=== PATIENT | female | born 1950 | race Hispanic/Latino ===

== ENCOUNTER → 2019-09-05 | Day surgery (SDC) | payer MEDICARE ==
[2019-09-03 10:23] LABS: BASOPHILS % 0.6 % (0.0-1.0); EOSINOPHILS # (AUTO) 0.2 (0.0-0.4); EOSINOPHILS % 2.8 % (0.0-6.0); HEMATOCRIT 42.7 % (34.2-44.1); HEMOGLOBIN 14.1 g/dL (12.0-16.0); LYMPHOCYTES % 37.9 % (18.0-39.1); MEAN CORPUSCULAR HEMOGLOBIN 30.9 pg (28-32); MEAN CORPUSCULAR VOLUME 93.6 fL (81-99); MONOCYTES # (AUTO) 0.6 (0.2-0.8); MONOCYTES % 11.6 % (4.4-11.3); NEUTROPHILS # (AUTO) 2.5 (2.1-6.9); NEUTROPHILS % 46.5 % (38.7-80.0); PLATELET COUNT 219 x10e3/uL (140-360); RED BLOOD COUNT 4.56 x10e6/uL (3.6-5.1); RED CELL DISTRIBUTION WIDTH 14.1 % (11.7-14.4)
[~2019-09-05] MED LIST: CALCIUM + VITA1 EACH PO; FOLIC ACID PO; HUMIRA40 MG/0.1 SQ; HYDROXYCHLOROQ200 MG PO; KETAMINE HCL INJ 50 MG/ML 10 ML VIAL ONE; METHOTREXATE2.5 MG PO; MIDAZOLAM HCL 2 MG/2 ML VIAL ONE; PREDNISONE5 MG PO; PROPOFOL IV EMULSION 10 MG/ML 50 ML VIAL ONE
--- OUTSIDE RECORDS SUMMARY | 2019-09-05 07:13 | XMS REPORT ---
Author Author [facility] Address Unknown Phone Unavailable Care Team Providers Care Manager Delivery Name Role Phone Unavailable Unavailable Payers Payer Name Policy Type Policy Number Effective Date Expiration Date Problems This patient has no known problems. Allergies, Adverse Reactions, Alerts Allergy Name Allergy Type Status Severity Reaction(s) Onset Date Inactive Date Treating Clinician Comments vancomycin DA Active SV 2019-01-01 00:00:00 UNKNOWN ANTIBIOTIC DA Active U 2015-10-31 00:00:00 Medications This patient has no known medications. Encounters Start Date/Time End Date/Time Encounter Type Admission Type Attending Clinicians [facility] Facility Care Department Encounter ID 2018-07-12 00:00:00 Inpatient [facility] [id number] 2017-06-27 09:44:31 Inpatient [facility] [id number] 2017-06-24 01:22:20 Inpatient [facility] [id number] 2017-05-10 13:01:26 Inpatient [facility] [id number] 2019-11-12 00:00:00 2019-11-12 00:00:00 Outpatient [facility] [id number] 2019-07-25 00:00:00 2019-07-25 00:00:00 Outpatient [facility] [id number] 2019-07-11 00:00:00 2019-07-11 00:00:00 Outpatient [facility] [id number] 2019-07-09 00:00:00 2019-07-09 00:00:00 Outpatient [facility] [id number] 2019-06-24 15:04:15 2019-06-24 15:04:15 Outpatient [facility] [id number] 2019-06-24 14:57:46 2019-06-24 14:57:46 Outpatient [facility] [id number] 2019-06-13 23:18:13 2019-06-13 23:18:13 Emergency [facility] [id number] 2019-06-13 22:43:11 2019-06-13 22:43:11 Emergency [facility] [id number] 2019-06-07 09:40:45 2019-06-07 09:40:45 Outpatient [facility] [id number] 2019-05-02 00:00:00 2019-05-02 00:00:00 Outpatient [facility] [id number] 2019-04-25 15:30:12 2019-04-25 15:30:12 Outpatient [facility] [id number] 2019-04-25 14:25:01 2019-04-25 14:25:01 Outpatient [facility] [id number] 2019-04-09 14:43:24 2019-04-09 14:43:24 Outpatient [facility] [id number] 2019-03-30 03:11:05 2019-03-30 03:11:05 Emergency [facility] [id number] 2019-03-29 20:54:30 2019-03-29 20:54:30 Emergency [facility] [id number] 2019-03-29 19:36:30 2019-03-29 19:36:30 Emergency [facility] [id number] 2019-03-29 18:52:30 2019-03-29 18:52:30 Inpatient [facility] [id number] 2019-03-07 09:48:16 2019-03-07 09:48:16 Outpatient [facility] [id number] 2019-03-07 07:41:09 2019-03-07 07:41:09 Outpatient [facility] [id number] 2019-02-22 10:00:14 2019-02-22 10:00:14 Outpatient [facility] [id number] 2019-01-30 08:38:47 2019-01-30 08:38:47 Outpatient [facility] [id number] 2019-01-18 10:33:32 2019-01-18 10:33:32 Outpatient [facility] [id number] 2018-11-26 13:08:17 2018-11-26 13:08:17 Outpatient [facility] [id number] 2018-11-20 14:19:56 2018-11-20 14:19:56 Outpatient [facility] [id number] 2018-11-12 16:33:36 2018-11-12 16:33:36 Outpatient [facility] [id number] 2018-11-08 08:12:27 2018-11-08 08:12:27 Outpatient [facility] [id number] 2018-11-08 07:15:10 2018-11-08 07:15:10 Outpatient [facility] [id number] 2018-11-05 15:04:10 2018-11-05 15:04:10 Outpatient [facility] [id number] 2018-11-05 13:58:08 2018-11-05 13:58:08 Outpatient [facility] [id number] 2018-11-01 10:22:19 2018-11-01 10:22:19 Outpatient [facility] [id number] 2018-11-01 00:00:00 2018-11-01 00:00:00 Outpatient [facility] [id number] 2018-10-26 00:00:00 2018-10-26 00:00:00 Outpatient [facility] [id number] 2018-10-18 04:35:43 2018-10-18 04:35:43 Emergency [facility] [id number] 2018-10-18 03:12:31 2018-10-18 03:12:31 Emergency [facility] [id number] 2018-10-18 01:28:30 2018-10-18 01:28:30 Emergency [facility] [id number] 2018-10-18 00:00:00 2018-10-18 00:00:00 Outpatient [facility] [id number] 2018-10-18 00:00:00 2018-10-18 00:00:00 Outpatient [facility] [id number] 2018-10-17 10:43:52 2018-10-17 10:43:52 Outpatient [facility] [id number] 2018-07-31 08:16:58 2018-07-31 08:16:58 Outpatient [facility] [id number] 2018-07-20 07:47:44 2018-07-20 07:47:44 Outpatient [facility] [id number] 2018-07-05 10:32:30 2018-07-05 10:32:30 Outpatient [facility] [id number] 2018-07-05 10:31:37 2018-07-05 10:31:37 Outpatient [facility] [id number] 2018-07-05 07:29:05 2018-07-05 07:29:05 Outpatient [facility] [id number] 2018-06-18 00:00:00 2018-06-18 00:00:00 Outpatient [facility] [id number] 2018-06-07 10:14:51 2018-06-07 10:14:51 Outpatient [facility] [id number] 2018-05-23 00:00:00 2018-05-23 00:00:00 Outpatient [facility] [id number] 2018-05-16 12:35:21 2018-05-16 12:35:21 Outpatient [facility] [id number] 2018-04-18 07:52:18 2018-04-18 07:52:18 Outpatient [facility] [id number] 2018-04-16 07:57:33 2018-04-16 07:57:33 Outpatient [facility] [id number] 2018-04-03 00:00:28 2018-04-03 00:00:28 Emergency [facility] [id number] 2018-04-03 00:00:00 2018-04-03 00:00:00 Outpatient [facility] [id number] 2018-04-02 23:19:04 2018-04-02 23:19:04 Emergency [facility] [id number] 2018-04-02 23:14:33 2018-04-02 23:14:33 Emergency [facility] [id number] 2018-03-29 13:30:55 2018-03-29 13:30:55 Outpatient [facility] [id number] 2018-03-22 09:29:04 2018-03-22 09:29:04 Emergency [facility] [id number] 2018-03-17 14:31:40 2018-03-17 14:31:40 Emergency [facility] [id number] 2018-03-17 12:59:27 2018-03-17 12:59:27 Emergency [facility] [id number] 2018-03-17 12:07:06 2018-03-17 12:07:06 Emergency [facility] [id number] 2018-03-08 09:18:07 2018-03-08 09:18:07 Outpatient [facility] [id number] 2018-03-08 07:15:52 2018-03-08 07:15:52 Outpatient [facility] [id number] 2018-03-07 08:22:24 2018-03-07 08:22:24 Outpatient [facility] [id number] 2018-01-30 08:53:20 2018-01-30 08:53:20 Outpatient [facility] [id number] 2018-01-30 08:19:35 2018-01-30 08:19:35 Outpatient [facility] [id number] 2018-01-04 08:31:20 2018-01-04 08:31:20 Outpatient [facility] [id number] 2018-01-02 07:53:12 2018-01-02 07:53:12 Outpatient [facility] [id number] 2017-12-15 07:57:05 2017-12-15 07:57:05 Outpatient [facility] [id number] 2017-12-12 07:43:53 2017-12-12 07:43:53 Outpatient [facility] [id number] 2017-11-28 08:05:45 2017-11-28 08:05:45 Outpatient [facility] [id number] 2017-11-02 10:39:20 2017-11-02 10:39:20 Outpatient [facility] [id number] 2017-11-02 08:04:28 2017-11-02 08:04:28 Outpatient [facility] [id number] 2017-10-31 00:00:00 2017-10-31 00:00:00 Outpatient [facility] [id number] 2017-10-30 08:55:21 2017-10-30 08:55:21 Outpatient [facility] [id number] 2017-10-26 08:58:13 2017-10-26 08:58:13 Outpatient [facility] [id number] 2017-10-20 11:31:00 2017-10-20 11:31:00 Outpatient [facility] [id number] 2017-10-17 00:00:00 2017-10-17 00:00:00 Outpatient [facility] [id number] 2017-10-17 00:00:00 2017-10-17 00:00:00 Outpatient [facility] [id number] 2017-10-10 00:00:00 2017-10-10 00:00:00 Outpatient [facility] [id number] 2017-09-19 08:29:45 2017-09-19 08:29:45 Outpatient [facility] [id number] 2017-09-11 10:55:38 2017-09-11 10:55:38 Outpatient [facility] [id number] 2017-09-11 10:37:52 2017-09-11 10:37:52 Outpatient [facility] [id number] 2017-09-04 08:33:35 2017-09-04 08:33:35 Outpatient [facility] [id number] 2017-09-01 08:13:02 2017-09-01 08:13:02 Outpatient [facility] [id number] 2017-08-29 09:48:34 2017-08-29 09:48:34 Outpatient [facility] [id number] 2017-08-22 11:27:15 2017-08-22 11:27:15 Outpatient [facility] [id number] 2017-08-22 10:04:10 2017-08-22 10:04:10 Outpatient [facility] [id number] 2017-08-15 10:12:27 2017-08-15 10:12:27 Outpatient [facility] [id number] 2017-08-03 10:22:41 2017-08-03 10:22:41 Outpatient [facility] [id number] 2017-07-27 07:26:18 2017-07-27 07:26:18 Outpatient [facility] [id number] 2017-07-27 00:00:00 2017-07-27 00:00:00 Outpatient [facility] [id number] 2017-07-25 10:09:42 2017-07-25 10:09:42 Outpatient [facility] [id number] 2017-07-18 10:10:20 2017-07-18 10:10:20 Outpatient [facility] [id number] 2017-07-13 08:31:01 2017-07-13 08:31:01 Outpatient [facility] [id number] 2017-07-13 00:00:00 2017-07-13 00:00:00 Outpatient [facility] [id number] 2017-07-07 08:36:53 2017-07-07 08:36:53 Outpatient [facility] [id number] 2017-07-06 08:36:49 2017-07-06 08:36:49 Outpatient [facility] [id number] 2017-07-06 08:32:51 2017-07-06 08:32:51 Outpatient [facility] [id number] 2017-07-05 13:54:24 2017-07-05 13:54:24 Outpatient [facility] [id number] 2017-07-04 14:28:57 2017-07-04 14:28:57 Outpatient [facility] [id number] 2017-06-26 00:00:00 2017-06-26 00:00:00 Outpatient [facility] [id number] 2017-06-24 01:54:56 2017-06-24 00:00:00 Inpatient [facility] [id number] 2017-06-23 21:24:48 2017-06-23 21:24:48 Emergency [facility] [id number] 2017-06-23 19:38:03 2017-06-23 19:38:03 Inpatient [facility] [id number] 2017-06-23 14:52:16 2017-06-23 14:52:16 Outpatient [facility] [id number] 2017-06-23 13:26:26 2017-06-23 13:26:26 Outpatient [facility] [id number] 2017-06-20 10:10:35 2017-06-20 10:10:35 Outpatient [facility] [id number] 2017-06-15 08:04:30 2017-06-15 08:04:30 Outpatient [facility] [id number] 2017-06-15 00:00:00 2017-06-15 00:00:00 Outpatient [facility] [id number] 2017-06-14 08:03:16 2017-06-14 08:03:16 Outpatient [facility] [id number] 2017-05-22 00:00:00 2017-05-22 00:00:00 Outpatient [facility] [id number] 2017-05-09 18:07:37 2017-05-09 18:07:37 Outpatient [facility] [id number] 2017-05-09 07:23:36 2017-05-09 07:23:36 Inpatient [facility] [id number] 2017-05-08 11:59:42 2017-05-08 11:59:42 Outpatient [facility] [id number] 2017-05-08 10:10:41 2017-05-08 10:10:41 Outpatient [facility] [id number] 2017-05-04 19:56:10 2017-05-04 19:56:10 Emergency [facility] [id number] 2017-05-04 16:32:08 2017-05-04 16:32:08 Emergency [facility] [id number] 2017-05-04 12:00:50 2017-05-04 12:00:50 Outpatient [facility] [id number] 2017-04-11 00:00:00 2017-04-11 00:00:00 Outpatient [facility] [id number] 2017-03-23 10:27:04 2017-03-23 10:27:04 Outpatient [facility] [id number] 2017-03-13 13:03:33 2017-03-13 13:03:33 Outpatient [facility] [id number] 2017-03-13 12:36:46 2017-03-13 12:36:46 Outpatient [facility] [id number] Results Test Description Test Time Test Comments Text Results Atomic Results Result Comments - CT CHEST W/CONTRAST 2019-08-15 13:57:00 Name: CORIE ANDRADE [facility] : 1950 Age/S: 68 / F [address] [facility] Unit #: [id number] Loc: [place] [address] Phys: Chris Story MD Acct: [id number] Dis Date: Status: REG CLI PHONE #: [phone] Exam Date: 08/15/2019 1300 FAX #: [phone] Reason: PULMANY NODULE EXAMS: CPT CODE: [id number] CT CHEST W/CONTRAST 06914 HISTORY: Pulmonary nodule. COMPARISON: None available. Location: [facility]. CT chest with contrast: 100 mL of Isovue-370. Automated exposure control. Unremarkable aorta. Suboptimally opacified pulmonary artery appear within normal limits. The distal branches are nondiagnostic. Well-opacified SVC and the neck vasculature heterogeneous thyroid glands with low-attenuation lesion in the right interpolar region measuring 5 mm esophageal wall is not thickened. No pathologic adenopathy. Cardiac silhouette is normal without pericardial effusion. Visualized Upper abdomen is within normal limits with coarse 1 cm right interpolar calyceal stone. Hepatomegaly as well. Subcutaneous tissues and the musculature are within normal limits. No lytic or blastic lesions are noted within the bony skeleton. DJD. 9 mm noncalcified right medial lower lobe lung nodule. 4 mm noncalcified subpleural left upper lobe anterolateral lung nodule. 4 mm right upper lobe posterior inferior lateral subpleural lung nodule as well. Dependent changes. Mild basal scarring. No bronchiectasis, honeycombing or fibrosis or endobronchial lesions. Minimal bullous change in the apical segment of the left lower lobe and in the right upper lobe. No acute infiltrates, effusion or congestion. IMPRESSION: 9 mm noncalcified right lower lobe superior segment subpleural lung nodule. Right upper lobe bilateral 4 mm lung nodules as well. Close follow-up. Correlate with PET scan as clinically indicated. No acute infiltrates, effusion or congestion. No pathologic adenopathy. at 1357 Reported and signed by: Ozzie Mallory M.D. PAGE 1 Signed Report (CONTINUED) Name: CORIE ANDRADE [facility] : 1950 Age/S: 68 / F [address] [facility] Unit #: [id number] Loc: [facility] [place] [address] Phys: Chris Story MD Acct: [id number] Dis Date: Status: REG CLI PHONE #: [phone] Exam Date: 08/15/2019 1300 FAX #: [phone] Reason: PULMANY NODULE EXAMS: CPT CODE: [id number] CT CHEST W/CONTRAST 50807 <Continued> CC: Chris Story M.D.; Cole Parish MD; Junior Jeff MD Technologist:Marvin Banks RT(R),(MR),(CT); CTDI: DLP: Trnscb Date/Time: 08/15/2019 (5200) t.[email or web address] Orig Print D/T: S: 08/15/2019 (0560) PAGE 2 Signed Report CREATININE W ESTIMATED GFR 2019-08-15 12:04:00 BEDSIDE CREATININE (test code=CREATBED) mg/dL 0.7-1.3 GLOMERULAR FILTRATION RATE POC (test code=GFRBED) 91 >60 CREATININE W ESTIMATED [id number] 12:04:00* Test Item Value Reference Range Comments BEDSIDE CREATININE (test code=CREATBED) 0.65 mg/dL 0.7-1.3 GLOMERULAR FILTRATION RATE POC (test code=GFRBED) > 60 >60 Previously reported result: 91 Edited by: RADHA on 08/15/19:03205310/15/18 1204: GFRBED previously reported as: 91 H KIDNEY STONE [id number] 11:33:00* Test Item Value Reference Range Comments KIDNEY STONE ANALYSIS (test code=STONEK) mm () Specimen received as fragments. SOURCE OF STONE (test code=STONESRC) KIDNEY STONE ANALYSIS COMMENT (test code=STONECOM) NO NIDUS VISUALIZED NIDUS Color: Panda Size : Specimen received as fragments. Composition: Percentage (Represents the % composition) Ca oxalate dihydrate 10 % Ca oxalate monohydr. 45 % Calcium phosphate 20 % Magnesium alex[place] phos 25 % Test performed at: [facility] [place] [address] STONE ANALYSIS (test code=STONE) () Photograph will follow under separate cover. WEIGHT OF STONE (test code=STONEWT) 16.0 mg () Test performed at: [employer] [address] [address] KIDNEY STONE [id number] 08:19:00* Test Item Value Reference Range Comments KIDNEY STONE ANALYSIS (test code=STONEK) mm () Specimen received as fragments. SOURCE OF STONE (test code=STONESRC) STONE ANALYSIS COMMENT (test code=STONECOM) NIDUS STONE ANALYSIS (test code=STONE) () Photograph will follow under separate cover. WEIGHT OF STONE (test code=STONEWT) 16.0 mg () Test performed at: [employer] [facility] [place] [address] [id number] 17:06:00 RUN DATE: 01/07/19 [place] RUN TIME: 1706 Specimen Inqui ry RUN USER: INTERFACE PATIENT: CORIE ANDRADE ACCT #: [id number] LOC: MARY U #: [id number] AGE/SX: 68/F [facility] DR: Mae Coronado MD : [birth year] BED: A DIS: 01/04/19 STATUS: DIS IN TLOC: SPEC #: [id number] RECD: 01/04/19 STATUS: MASON RE #: [phone] ELADIA: 01/04/19 [facility] [address]: Yony Gallagher ENTERED: 01/04/19 SP TYPE: CALCULI OTHR DR: Yony Sapp ORDERED: GROSS PROCEDURES: GROSS (01/07/19141) TISSUES: LEFT URETERAL ORIFICE - STONE CLINICAL HISTORY COLLECTION D ATE: 01/04/19 LEFT URETERAL STONES FINAL DIAGNOSIS Left ureteral stone, removal: CALCULUS MATERIAL (GROSS IDENTIFICATION) SUBMITTED FOR CHEMICAL ANALYSIS RRB/christiano D 43213 MACROSCOPIC The specimen is submitted in a small amount of saline fluid in a container l abeled with the patient's name and "left ureteral stone". The specimen consis ts of a fragment of light panda calculous material measuring 0.3 x 0.2 x 0.15 c m. The specimen is submitted for chemical analysis. GROSS PERFORMED AT [facility] [address] [place], [place] [address] [place] [address] (p)[phone] Signed SIGNATURE ON Nabil Berger MD 01/07/19 1706 END OF REPORT [id number] 16:04:00* Test Item Value Reference Range Comments GLUBED (test code=GLUBED) 168 mg/dL 74-106 Performed by certified unit reactor operator at [facility] [id number] 11:35:00* Test Item Value Reference Range Comments GLUBED (test code=GLUBED) 258 mg/dL 74-106 Performed by certified unit reactor operator at [facility] [id number] 09:16:00* Test Item Value Reference Range Comments GLUBED (test code=GLUBED) 156 mg/dL 74-106 Performed by certified unit reactor operator at [facility] - XR CYSTOURETHRO [id number] 09:03:00 FAX: Mae Coronado MD [place]: St: ADM FAX: Yony Spain [phone] Name: CORIE ANDRADE [facility] : 1950 Age/S: 68/F Denise Pham Unit #: [id number] Loc: V.5016 [place] [address] Phys: Yony Gallagher Acct: [id number] Dis Date: Status: ADM IN PHONE #: [phone] Exam Date: 01/04/2019 0800 FAX #: [phone] Reason: SURGERY EXAMS: CPT CODE: [id number] XR CYSTOURETHRO RETRO 59553 HISTORY: Ureteral stone. COMPARISON: CT scan from January 01, 2019. 21 fluoroscopic spot images from the OR: Opacification of the left collecting system and stent placement noted. at 0903 Reported and signed by: Ozzie Mallory M.D. CC: Mae Coronado MD; Yony Gallagher M.D. Technologist: MARIXA CHAUDHRY JR Trnscrd Date/Time/By: 01/04/2019 (902) : By: [email or web address] Orig Print D/T: S: 01/04/2019 (905) PAGE 1 Signed Report GLUBED 2019-01-04 06:34:00* Test Item Value Reference Range Comments GLUBED (test code=GLUBED) 128 mg/dL 74-106 Performed by certified unit reactor operator at [facility] [id number] 06:34:00* Test Item Value Reference Range Comments GLUBED (test code=GLUBED) 133 mg/dL 74-106 Performed by certified unit reactor operator at [facility] [id number] 20:58:00* Test Item Value Reference Range Comments GLUBED (test code=GLUBED) 159 mg/dL 74-106 Performed by certified unit reactor operator at [facility] [id number] 12:38:00* Test Item Value Reference Range Comments GLUBED (test code=GLUBED) 168 mg/dL 74-106 Performed by certified unit reactor operator at [facility] [id number] 09:06:00* Test Item Value Reference Range Comments GLUBED (test code=GLUBED) 155 mg/dL 74-106 Performed by certified unit reactor operator at [facility] BASIC METABOLIC [id number] 07:54:00* Test Item Value Reference Range Comments SODIUM (test code=NA) 136 mmol/L 136-145 POTASSIUM (test code=K) 3.4 mmol/L 3.5-5.1 CHLORIDE (test code=CL) 105.0 mmol/L 98-107 CARBON DIOXIDE (test code=CO2) 24.0 mmol/L 21-32 ANION GAP (test code=GAP) 10.4 10-20 GLUCOSE (test code=GLU) 139 mg/dL 74-106 BLOOD UREA NITROGEN (test code=BUN) 9 mg/dL 7-18 GLOMERULAR FILTRATION RATE (test code=GFR) > 60 mL/min >=60 Estimated GFR by using Modified MDRD formula.Chronic kidney disease is defined as either kidney damageor GFR <60 mL/min/1.73 m2 for >3 months. CREATININE (test code=CREAT) 0.60 mg/dL 0.55-1.02 Note change in reference range due to change in reagent. BUN/CREATININE RATIO (test code=BUN/CREA) 15.0 10-20 CALCIUM (test code=CA) 8.3 mg/dL 8.5-10.1 LIPID PROFILE (CORONARY RISK)2019-01-03 07:54:00* Test Item Value Reference Range Comments TRIGLYCERIDES (test code=TRIG) 119 mg/dL 20-150 CHOLESTEROL (test code=CHOL) 133 mg/dL 0-200 CHOLESTEROL/HDL RATIO (test code=CHOLHDL) 4.0 RATIO 0-4.9 RISK ASSOCIATED WITH CHOL/HDL RATIOS: Risk Male Female1/2 AVERAGE 3.43 3.27AVERAGE 4.97 4.442X AVERAGE 9.55 7.053X AVERAGE 23.39 11.04 REFERENCE VALUE IS RELATED TO RISK LEVELS ASRECOMMENDED BY THE LG. HEART, LUNG, AND BLOOD INST. HDL CHOLESTEROL (test code=HDL) 30 mg/dL 40-60 LIPOPROTEIN LDL (test code=LDL) 79 mg/dL 100-129 Reference Interval: mg/dL mmol/L Optimal <100 <2.6Near/above optimal 100-129 2.6- 3.3Borderline High 130-159 3.4-4.1High 160-189 4.1-4.9Very High >=190 >=4.9=========This LDL result is a direct measurement.========= [id number] 07:54:00* Test Item Value Reference Range Comments MAGNESIUM (test code=MAG) 1.8 mg/dL 1.8-2.4 CBC W/AUTO [id number] 07:36:00* Test Item Value Reference Range Comments WHITE BLOOD CELL (test code=WBC) 11.5 K/mm3 4.5-12.5 RED BLOOD CELL (test code=RBC) 4.05 mill/mm3 3.7-5.2 HEMOGLOBIN (test code=HGB) 12.1 gram/dL 11.5-15.5 HEMATOCRIT (test code=HCT) 37.9 % 36.0-46.0 MEAN CELL VOLUME (test code=MCV) 93.6 fL 80-98 MEAN CELL HGB (test code=MCH) 29.9 picogram 27.0-33.0 MEAN CELL HGB CONCETRATION (test code=MCHC) 31.9 gram/dL 33.0-36.0 RED CELL DISTRIBUTION WIDTH (test code=RDW) 14.0 % 11.6-16.2 RED CELL DISTRIBUTION WIDTH SD (test code=RDW-SD) 48.4 fL 37.0-51.0 PLATELET COUNT (test code=PLT) 134 K/mm3 150-450 MEAN PLATELET VOLUME (test code=MPV) 11.4 fL 6.7-11.0 NEUTROPHIL % (test code=NT%) 84.3 % 39.0-69.0 IMMATURE GRANULOCYTE % (test code=IG%) 0.6 % 0.0-5.0 LYMPHOCYTE % (test code=LY%) 8.8 % 25.0-55.0 MONOCYTE % (test code=MO%) 6.0 % 0.0-10.0 EOSINOPHIL % (test code=EO%) 0.1 % 0.0-5.0 BASOPHIL % (test code=BA%) 0.2 % 0.0-1.0 NUCLEATED RBC % (test code=NRBC%) 0.0 % 0-0 NEUTROPHIL # (test code=NT#) 9.72 K/mm3 1.8-7.7 IMMATURE GRANULOCYTE # (test code=IG#) 0.07 x10 3/uL 0-0.03 LYMPHOCYTE # (test code=LY#) 1.02 K/mm3 1.0-5.0 MONOCYTE # (test code=MO#) 0.69 K/mm3 0-0.8 EOSINOPHIL # (test code=EO#) 0.01 K/mm3 0.0-0.5 BASOPHIL # (test code=BA#) 0.02 K/mm3 0.0-0.2 NUCLEATED RBC # (test code=NRBC#) 0.00 K/mm3 0.0-0.1 MANUAL DIFF REQUIRED (test code=MDIFF) NO CBC W/AUTO [id number] 07:18:00* Test Item Value Reference Range Comments WHITE BLOOD CELL (test code=WBC) K/mm3 4.5-12.5 RED BLOOD CELL (test code=RBC) mill/mm3 3.7-5.2 HEMOGLOBIN (test code=HGB) 12.1 gram/dL 11.5-15.5 HEMATOCRIT (test code=HCT) 37.9 % 36.0-46.0 MEAN CELL VOLUME (test code=MCV) fL 80-98 MEAN CELL HGB (test code=MCH) picogram 27.0-33.0 MEAN CELL HGB CONCETRATION (test code=MCHC) gram/dL 33.0-36.0 RED CELL DISTRIBUTION WIDTH (test code=RDW) % 11.6-16.2 RED CELL DISTRIBUTION WIDTH SD (test code=RDW-SD) fL 37.0-51.0 PLATELET COUNT (test code=PLT) K/mm3 150-450 MEAN PLATELET VOLUME (test code=MPV) fL 6.7-11.0 NEUTROPHIL % (test code=NT%) % 39.0-69.0 IMMATURE GRANULOCYTE % (test code=IG%) % 0.0-5.0 LYMPHOCYTE % (test code=LY%) % 25.0-55.0 MONOCYTE % (test code=MO%) % 0.0-10.0 EOSINOPHIL % (test code=EO%) % 0.0-5.0 BASOPHIL % (test code=BA%) % 0.0-1.0 NEUTROPHIL # (test code=NT#) K/mm3 1.8-7.7 LYMPHOCYTE # (test code=LY#) K/mm3 1.0-5.0 MONOCYTE # (test code=MO#) K/mm3 0-0.8 EOSINOPHIL # (test code=EO#) K/mm3 0.0-0.5 BASOPHIL # (test code=BA#) K/mm3 0.0-0.2 [id number] 22:36:00* Test Item Value Reference Range Comments GLUBED (test code=GLUBED) 160 mg/dL 74-106 Performed by certified unit reactor operator at [facility] [id number] 17:51:00* Test Item Value Reference Range Comments GLUBED (test code=GLUBED) 124 mg/dL 74-106 Performed by certified unit reactor operator at [facility] [id number] 06:18:00* Test Item Value Reference Range Comments GLYCOSYLATED HEMOGLOBIN (HA1C) (test code=GLYHGB) 8.4 % HbA1 4.8-6.0 ESTIMATED AVERAGE GLUCOSE (test code=EAG) 194 MG/DL BASIC METABOLIC [id number] 05:44:00* Test Item Value Reference Range Comments SODIUM (test code=NA) 138 mmol/L 136-145 POTASSIUM (test code=K) 3.8 mmol/L 3.5-5.1 CHLORIDE (test code=CL) 110.0 mmol/L 98-107 CARBON DIOXIDE (test code=CO2) 22.0 mmol/L 21-32 ANION GAP (test code=GAP) 9.8 10-20 GLUCOSE (test code=GLU) 183 mg/dL 74-106 BLOOD UREA NITROGEN (test code=BUN) 14 mg/dL 7-18 GLOMERULAR FILTRATION RATE (test code=GFR) > 60 mL/min >=60 Estimated GFR by using Modified MDRD formula.Chronic kidney disease is defined as either kidney damageor GFR <60 mL/min/1.73 m2 for >3 months. CREATININE (test code=CREAT) 0.80 mg/dL 0.55-1.02 Note change in reference range due to change in reagent. BUN/CREATININE RATIO (test code=BUN/CREA) 17.5 10-20 CALCIUM (test code=CA) 7.3 mg/dL 8.5-10.1 [id number] 05:44:00* Test Item Value Reference Range Comments MAGNESIUM (test code=MAG) 1.4 mg/dL 1.8-2.4 CBC W/AUTO [id number] 05:28:00* Test Item Value Reference Range Comments WHITE BLOOD CELL (test code=WBC) 15.8 K/mm3 4.5-12.5 RED BLOOD CELL (test code=RBC) 3.95 mill/mm3 3.7-5.2 HEMOGLOBIN (test code=HGB) 11.9 gram/dL 11.5-15.5 HEMATOCRIT (test code=HCT) 37.9 % 36.0-46.0 MEAN CELL VOLUME (test code=MCV) 95.9 fL 80-98 MEAN CELL HGB (test code=MCH) 30.1 picogram 27.0-33.0 MEAN CELL HGB CONCETRATION (test code=MCHC) 31.4 gram/dL 33.0-36.0 RED CELL DISTRIBUTION WIDTH (test code=RDW) 14.2 % 11.6-16.2 RED CELL DISTRIBUTION WIDTH SD (test code=RDW-SD) 49.5 fL 37.0-51.0 PLATELET COUNT (test code=PLT) 151 K/mm3 150-450 MEAN PLATELET VOLUME (test code=MPV) 11.4 fL 6.7-11.0 NEUTROPHIL % (test code=NT%) 88.9 % 39.0-69.0 IMMATURE GRANULOCYTE % (test code=IG%) 0.6 % 0.0-5.0 LYMPHOCYTE % (test code=LY%) 5.3 % 25.0-55.0 MONOCYTE % (test code=MO%) 5.1 % 0.0-10.0 EOSINOPHIL % (test code=EO%) 0.0 % 0.0-5.0 BASOPHIL % (test code=BA%) 0.1 % 0.0-1.0 NUCLEATED RBC % (test code=NRBC%) 0.0 % 0-0 NEUTROPHIL # (test code=NT#) 14.05 K/mm3 1.8-7.7 IMMATURE GRANULOCYTE # (test code=IG#) 0.10 x10 3/uL 0-0.03 LYMPHOCYTE # (test code=LY#) 0.83 K/mm3 1.0-5.0 MONOCYTE # (test code=MO#) 0.80 K/mm3 0-0.8 EOSINOPHIL # (test code=EO#) 0.00 K/mm3 0.0-0.5 BASOPHIL # (test code=BA#) 0.02 K/mm3 0.0-0.2 NUCLEATED RBC # (test code=NRBC#) 0.00 K/mm3 0.0-0.1 MANUAL DIFF REQUIRED (test code=MDIFF) NO LACTIC [id number] 00:47:00* Test Item Value Reference Range Comments LACTIC ACID (test code=LACT) 1.2 mmol/L 0.4-1.9 CBC W/AUTO [id number] 00:33:00* Test Item Value Reference Range Comments WHITE BLOOD CELL (test code=WBC) 15.5 K/mm3 4.5-12.5 RED BLOOD CELL (test code=RBC) 4.16 mill/mm3 3.7-5.2 HEMOGLOBIN (test code=HGB) 12.5 gram/dL 11.5-15.5 RESULT VERIFIED BY REPEAT ANALYSIS HEMATOCRIT (test code=HCT) 40.1 % 36.0-46.0 MEAN CELL VOLUME (test code=MCV) 96.4 fL 80-98 MEAN CELL HGB (test code=MCH) 30.0 picogram 27.0-33.0 MEAN CELL HGB CONCETRATION (test code=MCHC) 31.2 gram/dL 33.0-36.0 RED CELL DISTRIBUTION WIDTH (test code=RDW) 14.1 % 11.6-16.2 RED CELL DISTRIBUTION WIDTH SD (test code=RDW-SD) 50.1 fL 37.0-51.0 PLATELET COUNT (test code=PLT) 165 K/mm3 150-450 RESULT VERIFIED BY REPEAT ANALYSIS MEAN PLATELET VOLUME (test code=MPV) 11.2 fL 6.7-11.0 NEUTROPHIL % (test code=NT%) 84.9 % 39.0-69.0 IMMATURE GRANULOCYTE % (test code=IG%) 0.5 % 0.0-5.0 LYMPHOCYTE % (test code=LY%) 5.6 % 25.0-55.0 MONOCYTE % (test code=MO%) 8.8 % 0.0-10.0 EOSINOPHIL % (test code=EO%) 0.1 % 0.0-5.0 BASOPHIL % (test code=BA%) 0.1 % 0.0-1.0 NUCLEATED RBC % (test code=NRBC%) 0.0 % 0-0 NEUTROPHIL # (test code=NT#) 13.20 K/mm3 1.8-7.7 IMMATURE GRANULOCYTE # (test code=IG#) 0.08 x10 3/uL 0-0.03 LYMPHOCYTE # (test code=LY#) 0.87 K/mm3 1.0-5.0 MONOCYTE # (test code=MO#) 1.36 K/mm3 0-0.8 EOSINOPHIL # (test code=EO#) 0.01 K/mm3 0.0-0.5 BASOPHIL # (test code=BA#) 0.02 K/mm3 0.0-0.2 NUCLEATED RBC # (test code=NRBC#) 0.00 K/mm3 0.0-0.1 MANUAL DIFF REQUIRED (test code=MDIFF) NO LACTIC [id number] 12:40:00* Test Item Value Reference Range Comments LACTIC ACID (test code=LACT) 1.6 mmol/L 0.4-1.9 URINALYSIS [id number] 10:25:00* Test Item Value Reference Range Comments UA COLOR (test code=COLU) YELLOW YELLOW UA APPEARANCE (test code=APPU) SLIGHTLY CLOUDY CLEAR UA GLUCOSE DIPSTICK (test code=DGLUU) NEGATIVE mg/dL NEGATIVE UA BILIRUBIN DIPSTICK (test code=BILU) NEGATIVE mg/dL NEGATIVE UA KETONE DIPSTICK (test code=KETU) NEGATIVE mg/dL NEGATIVE UA SPECIFIC GRAVITY (test code=SGU) 1.033 1.001-1.035 UA BLOOD DIPSTICK (test code=LIBERTY) 3+ (Large) mg/dL NEGATIVE UA PH DIPSTICK (test code=LINO) 7.0 5.0-8.0 UA PROTEIN DIPSTICK (test code=PROU) 30 (1+) mg/dL NEGATIVE UA UROBILINIOGEN DIPSTICK (test code=URO) NEGATIVE mg/dL NEGATIVE UA NITRITE DIPSTICK (test code=JANET) NEGATIVE NEGATIVE UA LEUKOCYTE ESTERASE W REFLEX (test code=LEUUR) 3+ Ruslan/uL NEGATIVE UA WBC (test code=WBCU) >50 per HPF 0-5 UA RBC (test code=RBCU) >20 #/HPF 0-5 UA EPITHELIAL CELLS (test code=EPIU) FEW per HPF FEW UA BACTERIA (test code=BACU) FEW #/HPF NONE UA MUCUS (test code=MUCU) FEW #/LPF FEW Urine Source? Clean CatchURINALYSIS [id number] 10:20:00* Test Item Value Reference Range Comments UA COLOR (test code=COLU) YELLOW YELLOW UA APPEARANCE (test code=APPU) SLIGHTLY CLOUDY CLEAR UA GLUCOSE DIPSTICK (test code=DGLUU) NEGATIVE mg/dL NEGATIVE UA BILIRUBIN DIPSTICK (test code=BILU) NEGATIVE mg/dL NEGATIVE UA KETONE DIPSTICK (test code=KETU) NEGATIVE mg/dL NEGATIVE UA SPECIFIC GRAVITY (test code=SGU) 1.033 1.001-1.035 UA BLOOD DIPSTICK (test code=LIBERTY) 3+ (Large) mg/dL NEGATIVE UA PH DIPSTICK (test code=LINO) 7.0 5.0-8.0 UA PROTEIN DIPSTICK (test code=PROU) 30 (1+) mg/dL NEGATIVE UA UROBILINIOGEN DIPSTICK (test code=URO) NEGATIVE mg/dL NEGATIVE UA NITRITE DIPSTICK (test code=JANET) NEGATIVE NEGATIVE UA LEUKOCYTE ESTERASE W REFLEX (test code=LEUUR) 3+ Ruslan/uL NEGATIVE UA WBC (test code=WBCU) per HPF 0-5 Urine Source? Clean Catch- CT ABD PELVIS [id number] 09:34:00 Name: CORIE ANDRADE [facility] : 1950 Age/S: 68 [facility] F [address] [facility]: [id number] Loc: [place] [address] Phys: Leela Pope DO Acct: [id number] Di s Date: Status: REG ER PHONE #: Exam Date: 01/01/2019912 FAX #: Reason: abd pain, r/o diverticulitis EXAMS: CPT CODE: [id number] CT ABD PELVIS W/CONT 52840 HISTORY: Abdominal pain/d iverticulitis evaluation. COMPARISON: None available. CT abdomen and pelvis with IV contrast: 100 mL of Isovue-370. Automated exposure control. The lung bases are clear. Dependent changes and subpleural scarring. Pleural-based noncalcified right middle lobe anterola teral lateral lung nodule measuring 8 mm. Follow-up according to Fleischne r's criteria. Second right medial lower lobe nodule measured 6 mm. Third noncalcified nodule in the right lateral lower lobe in subpleural loc ation measured 5.4 mm. The hepatic parenchyma is enhancing homogen eously. The liver is measuring 17.4 cm in length. No discrete mass. Gallbl adder is without radiopaque stones. Portal vein is patent. U nremarkable spleen. The stomach distended incompletely however it is irasema l in appearance. Pancreas is enhancing homogeneously. Adrenals are normal. Right kidney is free from hydroureteronephrosis with homo geneous enhancement and excretion with nonobstructing 1 interpolar calycea l stone. Moderate left hydroureteronephrosis with delayed enhancement. No pathologic adenopathy. Well-opacified abdominal and pelvic v asculature. No bowel obstruction or colitis or diverticulitis or e nteritis. CT PELVIS: Appendix is normal. Pelvic oscar l loops are unobstructed. Incompletely distended urinary bladder w ith stone within the dependent portion measuring 4.5 mm likely recently pa ssed stone. Left hydroureter with obstructing stone measuring 3 mm in widt h and 8.6 mm in length and the far distal ureter at the mid sacral level. Patient is post hysterectomy. No pelvic pathologic adenopathy. No free fluid or free air or abscess. Subcutaneous tissues and the musculature are normal in appearance. No PAGE 1 S igned Report (CONTINUED) Name: CORIE ANDRADE [facility] : 1950 Age/S: 68 / F [address] [facility] Unit #: [id number] Loc: [place] [address] Phys: Kendy Pope DO Acct: [id number] Dis Date: Status: REG ER PHONE #: [phone] Exam Date: 01/01/2019912 FAX #: [phone] Reason: abd pain, r/o diver ticulitis EXAMS: CPT CODE: [id number] CT ABD PELVIS W/CONT 54483 <Continued> lytic or blastic lesions are noted within the bony skeleton. DJD. IMPRESSION: Moderate left hydroureteronephrosis with 3 x 8.6 mm obstructing stone in the far distal left ureter and the mid sacral level. No hydroureteronephrosis on the right and 1 cm interpolar calyceal stone. Incompletely distended urinary bladder with 4.5 mm stone within the dependent portion of midline likely recently passed stone from the left side. Normal appendix without bowel obstruction or colitis or diverticulitis or enteritis. No free fluid or free air or abscess. Multiple right lung base noncalcified lung nodules measuring up to 8 mm. Follow- up with CT chest on the nonemergent basis. at 0934 Reported and signed by: Ozzie Mallory M.D. CC: Kendy Pope DO Technologist:Marvin Banks RT(R),(MR),(CT) CTDI: DLP: Trnscb Date/Time: 01/01/2019 (34) [email or web address] Orig Print D/T: S: 01/01/2019 (0937) CTDI: DLP: PAGE 2 Signed Report THROMBOPLASTIN TIME [id number] 08:59:00* Test Item Value Reference Range Comments THROMBOPLASTIN TIME PARTIAL (test code=PTT) 36.3 seconds 25.0-36.5 IS PATIENT ON ANTICOAGULANTS? YLIST ANTICOAGULANTS COUMADINPROTHROMBIN TIME 2019-01-01 08:51:00* Test Item Value Reference Range Comments PROTHROMBIN TIME PATIENT (test code=PTP) 12.2 seconds 9.0-14.0 INTERNATIONAL NORMAL RATIO (test code=INR) 1.0 0.8-1.2 The therapeutic range for oral anticoagulant therapy formost indications is an international normalized ratio (INR)of between 2.0 and 3.0. The recommended therapeutic INRrange for various clinical situations is listed below: Clinical Situation INR range Pulmonary e mbolism treatment (2.0-3.0)Venous thrombosis treatmentVenous thrombosis prophylaxis (high risk surgery)Prevention of systemic embolism from: Acute myocardial infarction Valvular heart disease Atrial fibrillation Mechanical prosthetic heart valves (2.5-3.5) IS PATIENT ON ANTICOAGULANTS? YLIST ANTICOAGULANTS COUMADINBASIC METABOLIC PANEL 2019-01-01 08:50:00* Test Item Value Reference Range Comments SODIUM (test code=NA) 139 mmol/L 136-145 POTASSIUM (test code=K) 4.0 mmol/L 3.5-5.1 CHLORIDE (test code=CL) 107.0 mmol/L 98-107 CARBON DIOXIDE (test code=CO2) 24.0 mmol/L 21-32 ANION GAP (test code=GAP) 12.0 10-20 GLUCOSE (test code=GLU) 207 mg/dL 74-106 BLOOD UREA NITROGEN (test code=BUN) 14 mg/dL 7-18 GLOMERULAR FILTRATION RATE (test code=GFR) > 60 mL/min >=60 Estimated GFR by using Modified MDRD formula.Chronic kidney disease is defined as either kidney damageor GFR <60 mL/min/1.73 m2 for >3 months. CREATININE (test code=CREAT) 0.90 mg/dL 0.55-1.02 Note change in reference range due to change in reagent. BUN/CREATININE RATIO (test code=BUN/CREA) 15.6 10-20 CALCIUM (test code=CA) 8.8 mg/dL 8.5-10.1 HEPATIC FUNCTION [id number] 08:50:00* Test Item Value Reference Range Comments TOTAL PROTEIN (test code=PROT) 8.3 gram/dL 6.4-8.2 ALBUMIN (test code=ALB) 3.6 g/dL 3.4-5.0 GLOBULIN (test code=GLOB) 4.7 gram/dL 2.7-4.2 ALBUMIN/GLOBULIN RATIO (test code=A/G) 0.8 0.75-1.50 BILIRUBIN TOTAL (test code=BILT) 0.50 mg/dL 0.0-1.0 BILIRUBIN DIRECT (test code=BILD) 0.14 mg/dL 0.0-0.20 SGOT/AST (test code=AST) 28 IUnit/L 15-37 SGPT/ALT (test code=ALT) 33 IUnit/L 12-78 ALKALINE PHOSPHATASE TOTAL (test code=ALKP) 87 IUnit/L 45-117 Note change in reference range due to change in reagent. [id number] 08:50:00* Test Item Value Reference Range Comments LIPASE (test code=LIP) 74 U/L 73.0-393.0 [id number] 08:50:00* Test Item Value Reference Range Comments TROPONIN-I (test code=TROPI) <0.015 ng/mL 0-0.045 BASIC METABOLIC [id number] 08:40:00* Test Item Value Reference Range Comments SODIUM (test code=NA) 139 mmol/L 136-145 POTASSIUM (test code=K) 4.0 mmol/L 3.5-5.1 CHLORIDE (test code=CL) 107.0 mmol/L 98-107 CARBON DIOXIDE (test code=CO2) mmol/L 21-32 ANION GAP (test code=GAP) 10-20 GLUCOSE (test code=GLU) mg/dL 74-106 BLOOD UREA NITROGEN (test code=BUN) mg/dL 7-18 GLOMERULAR FILTRATION RATE (test code=GFR) mL/min >=60 CREATININE (test code=CREAT) mg/dL 0.55-1.02 BUN/CREATININE RATIO (test code=BUN/CREA) 10-20 CALCIUM (test code=CA) mg/dL 8.5-10.1 HEPATIC FUNCTION [id number] 08:40:00* Test Item Value Reference Range Comments TOTAL PROTEIN (test code=PROT) gram/dL 6.4-8.2 ALBUMIN (test code=ALB) g/dL 3.4-5.0 GLOBULIN (test code=GLOB) gram/dL 2.7-4.2 ALBUMIN/GLOBULIN RATIO (test code=A/G) 0.75-1.50 BILIRUBIN TOTAL (test code=BILT) mg/dL 0.0-1.0 BILIRUBIN DIRECT (test code=BILD) mg/dL 0.0-0.20 SGOT/AST (test code=AST) IUnit/L 15-37 SGPT/ALT (test code=ALT) IUnit/L 12-78 ALKALINE PHOSPHATASE TOTAL (test code=ALKP) IUnit/L 45-117 [id number] 08:40:00* Test Item Value Reference Range Comments LIPASE (test code=LIP) U/L 73.0-393.0 [id number] 08:40:00* Test Item Value Reference Range Comments TROPONIN-I (test code=TROPI) ng/mL 0-0.045 CBC W/O [id number] 08:01:00* Test Item Value Reference Range Comments WHITE BLOOD CELL (test code=WBC) 6.6 K/mm3 4.5-12.5 RED BLOOD CELL (test code=RBC) 5.10 mill/mm3 3.7-5.2 HEMOGLOBIN (test code=HGB) 15.5 gram/dL 11.5-15.5 HEMATOCRIT (test code=HCT) 47.5 % 36.0-46.0 MEAN CELL VOLUME (test code=MCV) 93.1 fL 80-98 MEAN CELL HGB (test code=MCH) 30.4 picogram 27.0-33.0 MEAN CELL HGB CONCETRATION (test code=MCHC) 32.6 gram/dL 33.0-36.0 RED CELL DISTRIBUTION WIDTH (test code=RDW) 13.5 % 11.6-16.2 PLATELET COUNT (test code=PLT) 230 K/mm3 150-450 MEAN PLATELET VOLUME (test code=MPV) 11.2 fL 6.7-11.0
[2019-09-05 09:50] VITALS: BP 115/66
== END | disposition home or self-care (01) ==
LOC: OR 07:07
PROVIDERS: ATTEND Internal Medicine Gastroenterology
DX: R19.5 Other fecal abnormalities (principal); D12.3 Benign neoplasm of transverse colon; K64.8 Other hemorrhoids; Z71.3 Dietary counseling and surveillance; E66.01 Morbid (severe) obesity due to excess calories; J44.9 Chronic obstructive pulmonary disease, unspecified; F17.210 Nicotine dependence, cigarettes, uncomplicated; Z88.1 Allergy status to other antibiotic agents; Z01.810 Encounter for preprocedural cardiovascular examination; Z01.812 Encounter for preprocedural laboratory examination; Z68.42 Body mass index [BMI] 45.0-49.9, adult
CPT/HCPCS: 36415; 45385; 85025; 88305; 93005; J2250; J2704; 45378

== ENCOUNTER 2022-01-20 22:04 | Inpatient (IN) | payer MEDICARE ==
[~2022-01-20] VITALS: Ht 149.9 cm; Wt 115.7 kg
[~2022-01-20 22:04] MED LIST changes: -KETAMINE HCL INJ 50 MG/ML 10 ML VIAL ONE; -MIDAZOLAM HCL 2 MG/2 ML VIAL ONE; -PROPOFOL IV EMULSION 10 MG/ML 50 ML VIAL ONE
[2022-01-20] MEDS ORDERED: ONDANSETRON HCL INJ 2MG/ML 2ML 2 MG/ML VIAL IV STA (22:12)
[2022-01-20] MEDS ORDERED: KETOROLAC TROMETHAMINE 30 MG/ML VIAL IV STA (22:12)
[2022-01-20 22:22] LABS: BASOPHILS % 0.5 % (0.0-1.0); EOSINOPHILS # (AUTO) 0.3 (0.0-0.4); EOSINOPHILS % 4.3 % (0.0-6.0); HEMATOCRIT 40.5 % (34.2-44.1); HEMOGLOBIN 13.1 g/dL (12.0-16.0); LYMPHOCYTES # (AUTO) 2.4 (1.0-3.2); LYMPHOCYTES % 37.5 % (18.0-39.1); MEAN CORPUSCULAR HEMOGLOBIN 31.8 pg (28-32); MEAN CORPUSCULAR HGB CONC 32.3 g/dL (31-35); MEAN CORPUSCULAR VOLUME 98.3 fL (81-99); MONOCYTES # (AUTO) 0.7 (0.2-0.8); MONOCYTES % 10.5 % (4.4-11.3); PLATELET COUNT 210 x10e3/uL (140-360); RED BLOOD COUNT 4.12 x10e6/uL (3.6-5.1); RED CELL DISTRIBUTION WIDTH 14.2 % (11.7-14.4)
[2022-01-20 22:40] LABS: AMYLASE 35 U/L (25-125); LIPASE 19 U/L (8-78)
[2022-01-20 22:44] LABS: ALBUMIN 3.6 g/dL (3.5-5.0); ANION GAP 12.9 mmol/L (8-16); CALCIUM 9.2 mg/dL (8.4-10.2); CREATININE, SERUM 0.81 mg/dL (0.57-1.11); POTASSIUM 3.9 mmol/L (3.5-5.1)
[2022-01-20] MEDS ORDERED: ONDANSETRON HCL INJ 2MG/ML 2ML 2 MG/ML VIAL IV PRN (23:45)
[2022-01-20 23:55] LABS: CLARITY,URINE CLOUDY (CLEAR); COLOR,URINE YELLOW (YELLOW); KETONES,URINE NEGATIVE (NEGATIVE); LEUKOCYTE ESTERASE ,URINE TRACE (NEGATIVE); NITRITE,URINE NEGATIVE (NEGATIVE); PROTEIN,URINE DIPSTICK 1+ (NEGATIVE); URINE UROBILINOGEN 0.2 mg/dL (0.2 - 1)
[2022-01-20] MEDS: SODIUM CHLORIDE 0.9% 1000ML 1,000 ML IV SCH (23:57)
[2022-01-21] VITALS (9 sets, daily range): BP systolic 108–125; BP diastolic 45–63
[2022-01-21 00:01] LABS: AMORPHOUS SEDIMENT,URINE FEW (FEW); BACTERIA,URINE FEW /HPF; EPITHELIAL CELLS,URINE MODERATE /LPF
[2022-01-21] MEDS ORDERED: [UNRECOGNIZED DRUG - OTHER] TP (05:46)
[2022-01-21 07:36] LABS: ALBUMIN 3.2 g/dL (3.5-5.0); ALBUMIN/GLOBULIN RATIO 1.3 (0.8-2.0); ANION GAP 11.2 mmol/L (8-16); CALCIUM 8.1 mg/dL (8.4-10.2); CREATININE, SERUM 0.74 mg/dL (0.57-1.11); POTASSIUM 4.2 mmol/L (3.5-5.1)
[2022-01-21] MEDS ORDERED: enbrel (07:37)
[2022-01-21 08:19] LABS: BASOPHILS % 0.7 % (0.0-1.0); EOSINOPHILS # (AUTO) 0.3 (0.0-0.4); EOSINOPHILS % 5.4 % (0.0-6.0); HEMOGLOBIN 12.2 g/dL (12.0-16.0); LYMPHOCYTES # (AUTO) 1.9 (1.0-3.2); LYMPHOCYTES % 34.4 % (18.0-39.1); MEAN CORPUSCULAR HEMOGLOBIN 32.3 pg (28-32); MEAN CORPUSCULAR HGB CONC 32.1 g/dL (31-35); MEAN CORPUSCULAR VOLUME 100.5 fL (81-99); MONOCYTES # (AUTO) 0.9 (0.2-0.8); MONOCYTES % 16.1 % (4.4-11.3); NEUTROPHILS # (AUTO) 2.4 (2.1-6.9); NEUTROPHILS % 43.2 % (38.7-80.0); PLATELET COUNT 171 x10e3/uL (140-360); RED BLOOD COUNT 3.78 x10e6/uL (3.6-5.1); RED CELL DISTRIBUTION WIDTH 14.4 % (11.7-14.4)
[2022-01-21] MEDS: Morphine 4mg INJECTION 4 MG/ML INJ IV PRN (08:44)
[2022-01-21] MEDS: SODIUM CHLORIDE 0.9% 1000ML 1,000 ML IV SCH (13:16)
[2022-01-21] MEDS ORDERED: FENTANYL CITRATE/PF 100MCG/2 ML INJ ONE (13:17)
[2022-01-21] MEDS ORDERED: MIDAZOLAM HCL 2 MG/2 ML VIAL ONE (13:17)
[2022-01-21] MEDS ORDERED: IOPAMIDOL 300MG/ML 50ML INFUS..BTL IV ONE (14:03)
[2022-01-21] MEDS ORDERED: BELLADONNA/OPIUM 30 MG SUPP RC ONE (14:03)
[2022-01-21] MEDS ORDERED: B&O 60MG R/S 60 MG SUPP PR PRN (14:45)
[2022-01-21] MEDS ORDERED: SEVOFLURANE INHAL SOLN 250 ML PEN BTL ONE (17:28)
[2022-01-21] MEDS ORDERED: PROPOFOL IV EMULSION 10 MG/ML 20 ML VIAL ONE (17:28)
[2022-01-21] MEDS ORDERED: LIDOCAINE HCL 2% LOCAL INJ 5 ML SDV VIAL INJ ONE (17:28)
[2022-01-21] MEDS ORDERED: DEXAMETHASONE SOD PHOS INJ 4 MG/ML SDV ONE (17:28)
[2022-01-21] MEDS ORDERED: ONDANSETRON HCL INJ 2MG/ML 2ML 2 MG/ML VIAL ONE (17:28)
[2022-01-21] MEDS ORDERED: POVIDONE IODINE 0.05% 0.05 % ML PO ONE (17:28)
[2022-01-21] MEDS: ACETAMINOPHEN 325 MG TAB PO PRN (20:19)
[2022-01-22] VITALS (8 sets, daily range): BP systolic 111–128; BP diastolic 46–63
[2022-01-22] MEDS: SODIUM CHLORIDE 0.9% 1000ML 1,000 ML IV SCH ×2 (02:09→17:07)
[2022-01-22 06:47] LABS: BASOPHILS % 0.2 % (0.0-1.0); HEMATOCRIT 40.5 % (34.2-44.1); HEMOGLOBIN 12.9 g/dL (12.0-16.0); LYMPHOCYTES % 15.2 % (18.0-39.1); MEAN CORPUSCULAR HGB CONC 31.9 g/dL (31-35); MEAN CORPUSCULAR VOLUME 100.5 fL (81-99); MONOCYTES # (AUTO) 0.2 (0.2-0.8); MONOCYTES % 3.7 % (4.4-11.3); NEUTROPHILS # (AUTO) 5.3 (2.1-6.9); NEUTROPHILS % 80.6 % (38.7-80.0); PLATELET COUNT 191 x10e3/uL (140-360); RED BLOOD COUNT 4.03 x10e6/uL (3.6-5.1); RED CELL DISTRIBUTION WIDTH 13.9 % (11.7-14.4)
[2022-01-22 07:02] LABS: ANION GAP 11.2 mmol/L (8-16); CALCIUM 8.1 mg/dL (8.4-10.2); CREATININE, SERUM 0.73 mg/dL (0.57-1.11); POTASSIUM 4.2 mmol/L (3.5-5.1)
[2022-01-22] MEDS: PHENAZOPYRIDINE HCL 100 MG TAB PO PRN (09:00)
[2022-01-22] MEDS: ACETAMINOPHEN 325 MG TAB PO PRN ×3 (09:00→22:04)
[2022-01-23] VITALS (8 sets, daily range): BP systolic 111–144; BP diastolic 52–67
[2022-01-23] MEDS: SODIUM CHLORIDE 0.9% 1000ML 1,000 ML IV SCH ×2 (05:49→21:45)
[2022-01-23] MEDS: PHENAZOPYRIDINE HCL 100 MG TAB PO PRN (09:20)
[2022-01-23] MEDS: ACETAMINOPHEN 325 MG TAB PO PRN (09:20)
[2022-01-23] MEDS: ENOXAPARIN SOD INJ 40 MG/0.4 ML SYR SC SCH (17:20)
[2022-01-24] VITALS (8 sets, daily range): BP systolic 111–150; BP diastolic 54–66
[2022-01-24 06:05] LABS: INR 1.02; PROTHROMBIN TIME 14.3 seconds (11.9-14.5)
[2022-01-24 06:06] LABS: PARTIAL THROMBOPLASTIN TIME 30.9 seconds (23.8-35.5)
[2022-01-24] MEDS: SODIUM CHLORIDE 0.9% 1000ML 1,000 ML IV SCH (10:01)
[2022-01-24] MEDS ORDERED: ONDANSETRON HCL 4 MG ORAL DISINTEGRATING TAB PO PRN (10:45)
[2022-01-24] MEDS ORDERED: DEXAMETHASONE SOD PHOS INJ 4 MG/ML SDV ONE (12:33)
[2022-01-24] MEDS ORDERED: PROPOFOL IV EMULSION 10 MG/ML 20 ML VIAL ONE (12:33)
[2022-01-24] MEDS ORDERED: SEVOFLURANE INHAL SOLN 250 ML PEN BTL ONE (12:33)
[2022-01-24] MEDS ORDERED: POVIDONE IODINE 0.05% 0.05 % ML PO ONE (12:33)
[2022-01-24] MEDS ORDERED: ONDANSETRON HCL INJ 2MG/ML 2ML 2 MG/ML VIAL ONE (12:33)
[2022-01-24] MEDS ORDERED: LIDOCAINE HCL 2% LOCAL INJ 5 ML SDV VIAL INJ ONE (12:33)
[2022-01-24] MEDS ORDERED: FENTANYL CITRATE/PF 100MCG/2 ML INJ ONE (13:30)
[2022-01-24] MEDS ORDERED: BUPIVACAINE HCL 0.5% INJ 30 ML VIAL INJ ONE (14:30)
[2022-01-24] MEDS ORDERED: HYDROMORPHONE 1MG/1ML INJ IV PRN (15:30)
[2022-01-24] MEDS ORDERED: HYDROCODONE/APAP 7.5MG-325MG 1 EA TAB PO PRN (15:30)
[2022-01-24] MEDS: ENOXAPARIN SOD INJ 40 MG/0.4 ML SYR SC SCH (18:58)
[2022-01-25] VITALS: BP 108/41
[2022-01-25] MEDS: SODIUM CHLORIDE 0.9% 1000ML 1,000 ML IV SCH (02:47)
[2022-01-25 04:00] VITALS: BP 113/50
[2022-01-25 07:54] VITALS: BP 120/59
[2022-01-25 08:18] VITALS: BP 108/44
[2022-01-25] MEDS ORDERED: ACETAMINOPHEN325 M1 PO (09:34)
[2022-03-08] MEDS ORDERED: ASPIRIN81 MG PO (10:20)
[2022-03-08] MEDS ORDERED: MULTI-VITAMIN1 EACH PO (10:20)
[2022-03-08] MEDS ORDERED: EPIDIOLEX100 MG/1 M (11:02)
== END 2022-01-25 10:55 | disposition home or self-care (01) | DRG 660 ==
LOC: ER 22:19 → ERHOLD 23:36 → MED/SURG2 01-21 01:39
PROVIDERS: ADMIT Internal Medicine; ATTEND Internal Medicine
PROC: 07TH0ZZ Resection of Right Inguinal Lymphatic, Open Approach (ICD-10-PCS; principal; 2022-01-24 14:12)
DX: N13.6 Pyonephrosis (principal); Z68.43 Body mass index [BMI] 50.0-59.9, adult; C83.05 Small cell B-cell lymphoma, lymph nodes of inguinal region and lower limb; C78.01 Secondary malignant neoplasm of right lung; Z85.3 Personal history of malignant neoplasm of breast; R91.8 Other nonspecific abnormal finding of lung field; Z20.822 Contact with and (suspected) exposure to COVID-19; R31.29 Other microscopic hematuria; E66.01 Morbid (severe) obesity due to excess calories; Z90.11 Acquired absence of right breast and nipple; E77.8 Other disorders of glycoprotein metabolism; K76.0 Fatty (change of) liver, not elsewhere classified; N81.10 Cystocele, unspecified; N81.6 Rectocele; N95.2 Postmenopausal atrophic vaginitis; N39.46 Mixed incontinence
CPT/HCPCS: 36415; 74176; 74420; 80048; 80053; 81001; 82150; 82232; 83615; 83690; 83970; 84550; 85025; 85610; 85730; 87086; 88305; 99284; C1758; C1769; C2617; J0696; J1100; J1170; J1650; J1885; J2001; J2250; J2270; J2405; J3010; J7030

== ENCOUNTER 2022-03-09 20:04 | Emergency (ER) | payer MEDICARE ==
[~2022-03-09] VITALS: Ht 149.9 cm; Wt 115.7 kg
[~2022-03-09 20:04] MED LIST changes: -CEFTRIAXONE 1 GM VIAL ONE; -DEXAMETHASONE SOD PHOS INJ 4 MG/ML SDV ONE; -EPHEDRINE SULFATE INJ 50 MG/ML VIAL ONE; -LIDOCAINE HCL 2% LOCAL INJ 5 ML SDV VIAL INJ ONE; -MIDAZOLAM HCL 2 MG/2 ML VIAL ONE; -ONDANSETRON HCL INJ 2MG/ML 2ML 2 MG/ML VIAL ONE; -POVIDONE IODINE 0.05% 0.05 % ML PO ONE; -PROMETHAZINE12.5 M1 PO; -PROPOFOL IV EMULSION 10 MG/ML 20 ML VIAL ONE; -SEVOFLURANE INHAL SOLN 250 ML PEN BTL ONE
[2022-03-09] MEDS ORDERED: ONDANSETRON HCL 4 MG ORAL DISINTEGRATING TAB PO ONE (20:30)
[2022-03-09] MEDS ORDERED: ONDANSETRON HCL INJ 2MG/ML 2ML 2 MG/ML VIAL IV STA (20:45)
[2022-03-09] MEDS ORDERED: KETOROLAC TROMETHAMINE 30 MG/ML VIAL IV PRN (21:30)
[2022-03-09 21:44] LABS: BASOPHILS % 0.2 % (0.0-1.0); HEMATOCRIT 39.7 % (34.2-44.1); HEMOGLOBIN 12.7 g/dL (12.0-16.0); LYMPHOCYTES # (AUTO) 0.9 (1.0-3.2); LYMPHOCYTES % 14.5 % (18.0-39.1); MEAN CORPUSCULAR HEMOGLOBIN 31.4 pg (28-32); MEAN CORPUSCULAR VOLUME 98.3 fL (81-99); MONOCYTES # (AUTO) 0.3 (0.2-0.8); MONOCYTES % 5.1 % (4.4-11.3); NEUTROPHILS # (AUTO) 5.2 (2.1-6.9); NEUTROPHILS % 79.9 % (38.7-80.0); PLATELET COUNT 292 x10e3/uL (140-360); RED BLOOD COUNT 4.04 x10e6/uL (3.6-5.1); RED CELL DISTRIBUTION WIDTH 14.3 % (11.7-14.4)
[2022-03-09 21:47] LABS: ANION GAP 15.3 mmol/L (8-16); CALCIUM 8.9 mg/dL (8.4-10.2); CREATININE, SERUM 0.93 mg/dL (0.57-1.11); POTASSIUM 4.3 mmol/L (3.5-5.1)
[2022-03-09] MEDS ORDERED: PROMETHAZINE 12.5MG/ NACL 0.9% 12.5 MG/50 ML BAG IV ONE (22:15)
[2022-03-09] MEDS ORDERED: PROMETHAZINE12.5 M1 PO (23:21)
== END 2022-03-10 00:30 | disposition home or self-care (01) ==
LOC: ER 20:16
DX: R11.2 Nausea with vomiting, unspecified (principal); M06.9 Rheumatoid arthritis, unspecified; Z85.3 Personal history of malignant neoplasm of breast; Z85.72 Personal history of non-Hodgkin lymphomas
CPT/HCPCS: 36415; 80048; 85025; 99283; J1885; J2405; J2550; Q0162

== ENCOUNTER → 2022-03-09 | Day surgery (SDC) | payer MEDICARE ==
[2022-03-08 11:25] LABS: BASOPHILS % 0.4 % (0.0-1.0); EOSINOPHILS # (AUTO) 0.2 (0.0-0.4); EOSINOPHILS % 2.9 % (0.0-6.0); HEMATOCRIT 41.3 % (34.2-44.1); HEMOGLOBIN 12.9 g/dL (12.0-16.0); LYMPHOCYTES # (AUTO) 1.6 (1.0-3.2); LYMPHOCYTES % 29.6 % (18.0-39.1); MEAN CORPUSCULAR HEMOGLOBIN 31.3 pg (28-32); MEAN CORPUSCULAR HGB CONC 31.2 g/dL (31-35); MEAN CORPUSCULAR VOLUME 100.2 fL (81-99); MONOCYTES # (AUTO) 0.7 (0.2-0.8); NEUTROPHILS % 53.9 % (38.7-80.0); PLATELET COUNT 276 x10e3/uL (140-360); RED BLOOD COUNT 4.12 x10e6/uL (3.6-5.1); RED CELL DISTRIBUTION WIDTH 14.6 % (11.7-14.4)
[2022-03-08 11:42] LABS: CALCIUM 9.2 mg/dL (8.4-10.2); CREATININE, SERUM 0.83 mg/dL (0.57-1.11)
[~2022-03-09] MED LIST changes: +ACETAMINOPHEN325 M1 PO; +ASPIRIN81 MG PO; +CEFTRIAXONE 1 GM VIAL ONE; +DEXAMETHASONE SOD PHOS INJ 4 MG/ML SDV ONE; +EPHEDRINE SULFATE INJ 50 MG/ML VIAL ONE; +EPIDIOLEX100 MG/1 M; +LIDOCAINE HCL 2% LOCAL INJ 5 ML SDV VIAL INJ ONE; +MIDAZOLAM HCL 2 MG/2 ML VIAL ONE; +MULTI-VITAMIN1 EACH PO; +ONDANSETRON HCL INJ 2MG/ML 2ML 2 MG/ML VIAL ONE; +POVIDONE IODINE 0.05% 0.05 % ML PO ONE; +PROMETHAZINE12.5 M1 PO; +PROPOFOL IV EMULSION 10 MG/ML 20 ML VIAL ONE; +SEVOFLURANE INHAL SOLN 250 ML PEN BTL ONE; +[UNRECOGNIZED DRUG - OTHER] TP; +enbrel
[2022-03-09 10:45] VITALS: BP 101/55
== END | disposition home or self-care (01) ==
LOC: OR 06:17
PROVIDERS: ATTEND Urology
DX: N20.0 Calculus of kidney (principal); Z96.0 Presence of urogenital implants; E66.01 Morbid (severe) obesity due to excess calories; F17.210 Nicotine dependence, cigarettes, uncomplicated; Z88.1 Allergy status to other antibiotic agents; Z01.810 Encounter for preprocedural cardiovascular examination; Z01.812 Encounter for preprocedural laboratory examination; Z01.818 Encounter for other preprocedural examination; Z20.822 Contact with and (suspected) exposure to COVID-19; Z79.82 Long term (current) use of aspirin; Z79.899 Other long term (current) drug therapy; Z68.43 Body mass index [BMI] 50.0-59.9, adult; Z85.3 Personal history of malignant neoplasm of breast
CPT/HCPCS: 36415; 50590; 71046; 74018; 80048; 84550; 85025; 93005; J0696; J1100; J2001; J2250; J2405; J2704; U0002

== ENCOUNTER 2022-06-18 07:47 | Emergency (ER) | payer MEDICARE ==
[~2022-06-18] VITALS: Ht 149.9 cm; Wt 115.7 kg
[~2022-06-18 07:47] MED LIST changes: +PROMETHAZINE12.5 M1 PO
[2022-06-18] MEDS ORDERED: MUCINEX DM ER1 EACH PO (09:31)
== END 2022-06-18 10:10 | disposition home or self-care (01) ==
LOC: ER 07:50
DX: R50.9 Fever, unspecified (principal); R05.9 Cough, unspecified; J06.9 Acute upper respiratory infection, unspecified; M06.9 Rheumatoid arthritis, unspecified; Z20.822 Contact with and (suspected) exposure to COVID-19; Z85.3 Personal history of malignant neoplasm of breast
CPT/HCPCS: 71045; 99283; U0002

== ENCOUNTER → 2022-08-30 | Outpatient (CLI) | payer MEDICARE ==
[~2022-08-30] MED LIST changes: +MUCINEX DM ER1 EACH PO
== END ==
LOC: RAD 10:30
PROVIDERS: ATTEND Urology
DX: N20.0 Calculus of kidney (principal); T19.1XXA Foreign body in bladder, initial encounter
CPT/HCPCS: 74018

== ENCOUNTER → 2022-10-21 | Day surgery (SDC) | payer MEDICARE ==
[2022-10-20 13:06] LABS: BASOPHILS # (AUTO) 0.1 (0.0-0.1); BASOPHILS % 0.9 % (0.0-1.0); EOSINOPHILS # (AUTO) 0.2 (0.0-0.4); EOSINOPHILS % 2.8 % (0.0-6.0); HEMATOCRIT 39.3 % (34.2-44.1); HEMOGLOBIN 12.6 g/dL (12.0-16.0); LYMPHOCYTES # (AUTO) 3.1 (1.0-3.2); LYMPHOCYTES % 45.7 % (18.0-39.1); MEAN CORPUSCULAR HEMOGLOBIN 30.5 pg (28-32); MEAN CORPUSCULAR HGB CONC 32.1 g/dL (31-35); MEAN CORPUSCULAR VOLUME 95.2 fL (81-99); MONOCYTES # (AUTO) 0.5 (0.2-0.8); MONOCYTES % 6.6 % (4.4-11.3); NEUTROPHILS % 43.7 % (38.7-80.0); PLATELET COUNT 205 x10e3/uL (140-360); RED BLOOD COUNT 4.13 x10e6/uL (3.6-5.1); RED CELL DISTRIBUTION WIDTH 14.6 % (11.7-14.4)
[2022-10-20 13:33] LABS: ANION GAP 15.2 mmol/L (8-16); CALCIUM 9.6 mg/dL (8.4-10.2); CREATININE, SERUM 0.99 mg/dL (0.57-1.11); POTASSIUM 4.2 mmol/L (3.5-5.1)
[~2022-10-21] MED LIST changes: +CEFTRIAXONE 1 GM VIAL ONE; +DEXAMETHASONE SOD PHOS INJ 4 MG/ML SDV ONE; +EPHEDRINE SULFATE INJ 50 MG/ML VIAL ONE; +FENTANYL CITRATE/PF 100MCG/2 ML INJ ONE; +GENTAMICIN 80MG/NS 100 ML 200 ML IV ONE; +IOPAMIDOL 610MG/1ML 300 MG/ML VIAL IV ONE; +LIDOCAINE HCL 2% LOCAL INJ 5 ML SDV VIAL INJ ONE; +ONDANSETRON HCL INJ 2MG/ML 2ML 2 MG/ML VIAL ONE; +PHENAZOPYRIDINE HCL 100 MG TAB ONE; +POVIDONE IODINE 0.05% 0.05 % ML PO ONE; +PROPOFOL IV EMULSION 10 MG/ML 20 ML VIAL ONE; +SEVOFLURANE INHAL SOLN 250 ML PEN BTL ONE
[2022-10-21 11:00] VITALS: BP 120/61
== END | disposition home or self-care (01) ==
LOC: OR 07:00
PROVIDERS: ATTEND Urology
DX: N20.1 Calculus of ureter (principal); Z46.6 Encounter for fitting and adjustment of urinary device; N28.89 Other specified disorders of kidney and ureter; N81.10 Cystocele, unspecified; N81.6 Rectocele; N95.2 Postmenopausal atrophic vaginitis; I49.3 Ventricular premature depolarization; C85.81 Other specified types of non-Hodgkin lymphoma, lymph nodes of head, face, and neck; R73.03 Prediabetes; M06.9 Rheumatoid arthritis, unspecified; N39.0 Urinary tract infection, site not specified; F17.210 Nicotine dependence, cigarettes, uncomplicated; Z01.810 Encounter for preprocedural cardiovascular examination; Z01.812 Encounter for preprocedural laboratory examination; Z01.818 Encounter for other preprocedural examination
CPT/HCPCS: 36415; 52352; 71046; 74018; 74420; 80048; 84550; 85025; 87086; 87186; 88300; 93005; J0696; J1100; J1580; J2001; J2405; J2704; J3010; Q9967

== ENCOUNTER → 2024-01-26 | Outpatient (REF) | payer MEDICARE ==
[~2024-01-26] MED LIST changes: -CEFTRIAXONE 1 GM VIAL ONE; -DEXAMETHASONE SOD PHOS INJ 4 MG/ML SDV ONE; -EPHEDRINE SULFATE INJ 50 MG/ML VIAL ONE; -FENTANYL CITRATE/PF 100MCG/2 ML INJ ONE; -GENTAMICIN 80MG/NS 100 ML 200 ML IV ONE; +IOPAMIDOL 370 MG/ML 100 ML INFUS..BTL INJ ONE; -IOPAMIDOL 610MG/1ML 300 MG/ML VIAL IV ONE; -LIDOCAINE HCL 2% LOCAL INJ 5 ML SDV VIAL INJ ONE; -ONDANSETRON HCL INJ 2MG/ML 2ML 2 MG/ML VIAL ONE; -PHENAZOPYRIDINE HCL 100 MG TAB ONE; -POVIDONE IODINE 0.05% 0.05 % ML PO ONE; -PROPOFOL IV EMULSION 10 MG/ML 20 ML VIAL ONE; -SEVOFLURANE INHAL SOLN 250 ML PEN BTL ONE
[2024-01-26 10:57] LABS: CREATININE, SERUM 0.85 mg/dL (0.57-1.11)
== END ==
LOC: CT 10:02
PROVIDERS: ATTEND Internal Medicine Hematology & Oncology
DX: C83.03 Small cell B-cell lymphoma, intra-abdominal lymph nodes (principal); R91.1 Solitary pulmonary nodule
CPT/HCPCS: 36415; 71260; 74177; 82565; 84520; Q9967

== ENCOUNTER 2024-08-14 10:30 | Emergency (ER) | payer MEDICARE ==
[~2024-08-14] VITALS: Ht 149.9 cm; Wt 117.9 kg
[2024-08-14 10:30] VITALS: TEMP 98.6
[~2024-08-14 10:30] MED LIST changes: -IOPAMIDOL 370 MG/ML 100 ML INFUS..BTL INJ ONE; +POTASSIUM CITR10 MEQ PO
[2024-08-14 11:49] LABS: BASOPHILS % 0.7 % (0.0-1.0); EOSINOPHILS # (AUTO) 0.1 (0.0-0.4); EOSINOPHILS % 2.1 % (0.0-6.0); HEMATOCRIT 42.3 % (34.2-44.1); HEMOGLOBIN 13.2 g/dL (12.0-16.0); LYMPHOCYTES # (AUTO) 2.1 (1.0-3.2); LYMPHOCYTES % 36.7 % (18.0-39.1); MEAN CORPUSCULAR HEMOGLOBIN 30.8 pg (28-32); MEAN CORPUSCULAR HGB CONC 31.2 g/dL (31-35); MEAN CORPUSCULAR VOLUME 98.8 fL (81-99); MONOCYTES # (AUTO) 0.4 (0.2-0.8); MONOCYTES % 6.3 % (4.4-11.3); NEUTROPHILS # (AUTO) 3.1 (2.1-6.9); PLATELET COUNT 187 x10e3/uL (140-360); RED BLOOD COUNT 4.28 x10e6/uL (3.6-5.1); RED CELL DISTRIBUTION WIDTH 14.1 % (11.7-14.4); WHITE BLOOD COUNT 5.69 x10e3/uL (4.8-10.8)
[2024-08-14] MEDS ORDERED: ASPIRIN 81 MG CHEW TAB PO ONE (12:00)
[2024-08-14 12:15] LABS: ALBUMIN 3.7 g/dL (3.5-5.0); ALBUMIN/GLOBULIN RATIO 1.2 (0.8-2.0); ANION GAP 14.6 mmol/L (8-16); BILIRUBIN,TOTAL 0.8 mg/dL (0.2-1.2); CALCIUM 9.4 mg/dL (8.4-10.2); CREATININE, SERUM 0.83 mg/dL (0.57-1.11); POTASSIUM 3.6 mmol/L (3.5-5.1); TOTAL PROTEIN 6.9 g/dL (6.5-8.1)
[2024-08-14 12:30] VITALS: PULSE 83; RESP 17; O2SAT 99
[2024-08-14 12:36] LABS: CLARITY,URINE CLEAR (CLEAR); COLOR,URINE YELLOW (YELLOW); GLUCOSE, URINE NEGATIVE (NEGATIVE); LEUKOCYTE ESTERASE ,URINE SMALL (NEGATIVE); NITRITE,URINE POSITIVE (NEGATIVE); PH,URINE 7.5 (5 - 7); PROTEIN,URINE DIPSTICK NEGATIVE (NEGATIVE)
[2024-08-14 12:37] LABS: BILIRUBIN,URINE NEGATIVE (NEGATIVE); KETONES,URINE NEGATIVE (NEGATIVE); URINE UROBILINOGEN 1 mg/dL (0.2 - 1)
[2024-08-14 12:39] LABS: BACTERIA,URINE MANY /HPF; EPITHELIAL CELLS,URINE MANY /LPF; RBC,URINE 0-5 /HPF (0-5); WBC,URINE (MAN) 21-50 /HPF (0-5)
== END 2024-08-14 13:49 | disposition short-term general hospital (02) ==
LOC: ER 10:41
DX: R20.0 Anesthesia of skin (principal); I63.9 Cerebral infarction, unspecified; H53.8 Other visual disturbances; R11.0 Nausea; M06.9 Rheumatoid arthritis, unspecified; R94.31 Abnormal electrocardiogram [ECG] [EKG]; Z85.3 Personal history of malignant neoplasm of breast; Z85.72 Personal history of non-Hodgkin lymphomas
CPT/HCPCS: 36415; 70450; 80053; 81001; 84484; 85025; 93005; 99285

== ENCOUNTER 2024-09-13 23:45 | Inpatient (IN) | payer MEDICARE ==
[~2024-09-13] VITALS: Ht 149.9 cm; Wt 117.9 kg
[2024-09-14] VITALS (10 sets, daily range): BP systolic 114–130; BP diastolic 58–67; PULSE 68–79; RESP 18–20; TEMP 97.6–98; O2SAT 96–100
[2024-09-14] MEDS: ONDANSETRON HCL INJ 2MG/ML 2ML 2 MG/ML VIAL IV STA (00:14)
[2024-09-14] MEDS: SODIUM CHLORIDE 0.9% 1000ML 1,000 ML IV ONE (00:14)
[2024-09-14] MEDS: KETOROLAC TROMETHAMINE 30 MG/ML VIAL IV STA (00:15)
[2024-09-14 00:16] LABS: BASOPHILS % 0.5 % (0.0-1.0); EOSINOPHILS # (AUTO) 0.1 (0.0-0.4); EOSINOPHILS % 2.1 % (0.0-6.0); HEMATOCRIT 44.6 % (34.2-44.1); HEMOGLOBIN 13.8 g/dL (12.0-16.0); LYMPHOCYTES # (AUTO) 2.8 (1.0-3.2); LYMPHOCYTES % 43.9 % (18.0-39.1); MEAN CORPUSCULAR HEMOGLOBIN 30.9 pg (28-32); MEAN CORPUSCULAR HGB CONC 30.9 g/dL (31-35); MEAN CORPUSCULAR VOLUME 99.8 fL (81-99); MONOCYTES # (AUTO) 0.3 (0.2-0.8); MONOCYTES % 4.5 % (4.4-11.3); NEUTROPHILS # (AUTO) 3.1 (2.1-6.9); NEUTROPHILS % 48.8 % (38.7-80.0); PLATELET COUNT 164 x10e3/uL (140-360); RED BLOOD COUNT 4.47 x10e6/uL (3.6-5.1); RED CELL DISTRIBUTION WIDTH 13.3 % (11.7-14.4); WHITE BLOOD COUNT 6.27 x10e3/uL (4.8-10.8)
[2024-09-14 00:30] LABS: ALBUMIN 3.8 g/dL (3.5-5.0); ALBUMIN/GLOBULIN RATIO 1.1 (0.8-2.0); BILIRUBIN,TOTAL 0.8 mg/dL (0.2-1.2); CALCIUM 9.2 mg/dL (8.4-10.2); CREATININE, SERUM 0.92 mg/dL (0.57-1.11); TOTAL PROTEIN 7.3 g/dL (6.5-8.1)
[2024-09-14 00:50] LABS: CLARITY,URINE CLOUDY (CLEAR); COLOR,URINE AMBER (YELLOW); PH,URINE 5.5 (5 - 7)
[2024-09-14 00:51] LABS: BILIRUBIN,URINE 3+ (NEGATIVE); GLUCOSE, URINE NEGATIVE (NEGATIVE); KETONES,URINE TRACE (NEGATIVE); LEUKOCYTE ESTERASE ,URINE TRACE (NEGATIVE); NITRITE,URINE NEGATIVE (NEGATIVE); PROTEIN,URINE DIPSTICK >=300 (NEGATIVE); URINE UROBILINOGEN 1 mg/dL (0.2 - 1)
[2024-09-14 01:01] LABS: BACTERIA,URINE MANY /HPF; EPITHELIAL CELLS,URINE MODERATE /LPF; RBC,URINE >50 /HPF (0-5)
[2024-09-14] MEDS ORDERED: SODIUM CHLORIDE FLUSH 10 ML SYR INJ PRN (01:45)
[2024-09-14] MEDS ORDERED: ONDANSETRON HCL INJ 2MG/ML 2ML 2 MG/ML VIAL IV PRN (01:45)
[2024-09-14] MEDS ORDERED: ACETAMINOPHEN 325 MG TAB PO PRN (10:15)
[2024-09-14] MEDS ORDERED: HYDRALAZINE HCL 20 MG/ML VIAL IV PRN (10:15)
[2024-09-14] MEDS: ENOXAPARIN SOD INJ 40 MG/0.4 ML SYR SC SCH (16:39)
[2024-09-15] VITALS (7 sets, daily range): BP systolic 116–154; BP diastolic 57–85; PULSE 70–84; RESP 16–20; TEMP 97.8–98.5; O2SAT 93–99
[2024-09-15 08:19] LABS: BASOPHILS % 0.5 % (0.0-1.0); EOSINOPHILS # (AUTO) 0.2 (0.0-0.4); EOSINOPHILS % 4.2 % (0.0-6.0); HEMATOCRIT 39.1 % (34.2-44.1); HEMOGLOBIN 12.2 g/dL (12.0-16.0); LYMPHOCYTES # (AUTO) 1.9 (1.0-3.2); LYMPHOCYTES % 43.4 % (18.0-39.1); MEAN CORPUSCULAR HGB CONC 31.2 g/dL (31-35); MEAN CORPUSCULAR VOLUME 99.2 fL (81-99); MONOCYTES # (AUTO) 0.2 (0.2-0.8); MONOCYTES % 5.6 % (4.4-11.3); NEUTROPHILS % 46.3 % (38.7-80.0); PLATELET COUNT 153 x10e3/uL (140-360); RED BLOOD COUNT 3.94 x10e6/uL (3.6-5.1); RED CELL DISTRIBUTION WIDTH 13.5 % (11.7-14.4); WHITE BLOOD COUNT 4.26 x10e3/uL (4.8-10.8)
[2024-09-15 08:52] LABS: BILIRUBIN,TOTAL 0.6 mg/dL (0.2-1.2); CALCIUM 8.6 mg/dL (8.4-10.2); CREATININE, SERUM 0.78 mg/dL (0.57-1.11); TOTAL PROTEIN 5.9 g/dL (6.5-8.1)
[2024-09-15] MEDS: HYDROXYCHLOROQUINE SULFATE 200 MG TAB PO SCH (09:44)
[2024-09-15 18:53] LABS: CLARITY,URINE CLEAR (CLEAR); COLOR,URINE YELLOW (YELLOW)
[2024-09-15 18:54] LABS: BILIRUBIN,URINE NEGATIVE (NEGATIVE); GLUCOSE, URINE NEGATIVE (NEGATIVE); KETONES,URINE NEGATIVE (NEGATIVE); LEUKOCYTE ESTERASE ,URINE TRACE (NEGATIVE); NITRITE,URINE NEGATIVE (NEGATIVE); PH,URINE 6 (5 - 7); PROTEIN,URINE DIPSTICK NEGATIVE (NEGATIVE); URINE UROBILINOGEN 0.2 mg/dL (0.2 - 1)
[2024-09-15 19:28] LABS: RBC,URINE 21-50 /HPF (0-5)
[2024-09-15 19:29] LABS: YEAST,URINE FEW
[2024-09-15] MEDS: FLUCONAZOLE 200 MG/100 ML 100 ML IV SCH (22:06)
[2024-09-16] VITALS (9 sets, daily range): BP systolic 110–134; BP diastolic 57–68; PULSE 66–76; RESP 18–21; TEMP 97.8–98.5; O2SAT 95–98
[2024-09-17] VITALS (7 sets, daily range): BP systolic 115–136; BP diastolic 59–78; PULSE 65–87; RESP 18–20; TEMP 97.6–98.2; O2SAT 93–100
[2024-09-17] MEDS ORDERED: PROPOFOL IV EMULSION 10 MG/ML 20 ML VIAL ONE (07:17)
[2024-09-17] MEDS ORDERED: FENTANYL CITRATE/PF 100MCG/2 ML INJ ONE (07:20)
[2024-09-17] MEDS ORDERED: LIDOCAINE HCL 2% LOCAL INJ 5 ML SDV VIAL INJ ONE (07:21)
[2024-09-17] MEDS ORDERED: ONDANSETRON HCL INJ 2MG/ML 2ML 2 MG/ML VIAL ONE (07:32)
[2024-09-17] MEDS ORDERED: DEXAMETHASONE SOD PHOS INJ 4 MG/ML SDV ONE (07:32)
[2024-09-17] MEDS ORDERED: EPHEDRINE SULFATE INJ 50 MG/ML VIAL ONE (07:40)
[2024-09-17] MEDS ORDERED: ACETAMINOPHEN 1000 MG/100 ML 100 ML IV ONE (07:45)
[2024-09-17] MEDS ORDERED: PHENAZOPYRIDINE HCL 100 MG TAB PO PRN (08:30)
[2024-09-17] MEDS: ACETAMINOPHEN/CODEINE 300MG - 30MG TAB PO PRN (20:02)
[2024-09-18] VITALS (8 sets, daily range): BP systolic 118–145; BP diastolic 53–79; PULSE 62–77; RESP 18–20; TEMP 97.9–98.3; O2SAT 95–100
[2024-09-18 06:10] LABS: BASOPHILS % 0.1 % (0.0-1.0); HEMATOCRIT 39.2 % (34.2-44.1); LYMPHOCYTES # (AUTO) 1.4 (1.0-3.2); LYMPHOCYTES % 21.1 % (18.0-39.1); MEAN CORPUSCULAR HGB CONC 33.2 g/dL (31-35); MEAN CORPUSCULAR VOLUME 93.3 fL (81-99); MONOCYTES # (AUTO) 0.1 (0.2-0.8); MONOCYTES % 1.8 % (4.4-11.3); NEUTROPHILS # (AUTO) 5.2 (2.1-6.9); NEUTROPHILS % 76.7 % (38.7-80.0); PLATELET COUNT 198 x10e3/uL (140-360); RED CELL DISTRIBUTION WIDTH 13.2 % (11.7-14.4); WHITE BLOOD COUNT 6.81 x10e3/uL (4.8-10.8)
[2024-09-18 06:29] LABS: CALCIUM 9.3 mg/dL (8.4-10.2); CREATININE, SERUM 0.84 mg/dL (0.57-1.11)
[2024-09-19 03:20] VITALS: BP 121/71; PULSE 72; RESP 18; TEMP 97.9; O2SAT 96
[2024-09-19 08:13] VITALS: BP 122/72; PULSE 64; RESP 20; TEMP 97.7; O2SAT 98
[2024-09-19 09:48] VITALS: BP 122/72; PULSE 64; RESP 20; TEMP 97.7; O2SAT 98
[2024-09-19 12:06] VITALS: BP 106/58; PULSE 63; RESP 20; TEMP 98.1; O2SAT 98
== END 2024-09-19 13:05 | disposition home or self-care (01) | DRG 660 ==
LOC: ER 23:55 → ERHOLD 09-14 01:46 → MED/SURG2 09-14 02:22 → OBSVTOIN 09-14 09:37
PROVIDERS: ADMIT Internal Medicine; ATTEND Internal Medicine
PROC: 0TBB8ZX Excision of Bladder, Via Natural or Artificial Opening Endoscopic, Diagnostic (ICD-10-PCS; 2024-09-17)
PROC: 0TC78ZZ Extirpation of Matter from Left Ureter, Via Natural or Artificial Opening Endoscopic (ICD-10-PCS; 2024-09-17)
PROC: 0UJH7ZZ Inspection of Vagina and Cul-de-sac, Via Natural or Artificial Opening (ICD-10-PCS; 2024-09-17)
PROC: BT141ZZ Fluoroscopy of Kidneys, Ureters and Bladder using Low Osmolar Contrast (ICD-10-PCS; 2024-09-17)
PROC: 0T778DZ Dilation of Left Ureter with Intraluminal Device, Via Natural or Artificial Opening Endoscopic (ICD-10-PCS; principal; 2024-09-17 07:17)
DX: N13.6 Pyonephrosis (principal); L03.115 Cellulitis of right lower limb; Z68.43 Body mass index [BMI] 50.0-59.9, adult; E66.01 Morbid (severe) obesity due to excess calories; N23 Unspecified renal colic; R31.0 Gross hematuria; M06.9 Rheumatoid arthritis, unspecified; I10 Essential (primary) hypertension; E78.5 Hyperlipidemia, unspecified; M54.50 Low back pain, unspecified; Z99.3 Dependence on wheelchair; Z85.72 Personal history of non-Hodgkin lymphomas; Z85.3 Personal history of malignant neoplasm of breast; Z90.11 Acquired absence of right breast and nipple; Z90.710 Acquired absence of both cervix and uterus; Z88.1 Allergy status to other antibiotic agents
CPT/HCPCS: 36415; 74176; 74420; 80048; 80053; 81001; 82948; 83690; 85025; 87086; 88300; 88305; 99284; C2617; J1100; J1450; J1650; J1885; J2003; J2405; J2543; J7030

== ENCOUNTER → 2024-10-30 | Day surgery (SDC) | payer MEDICARE ==
[~2024-10-30] MED LIST changes: +ALENDRONATE SOD70 MG PO; +CELEBREX200 MG PO; +ELIQUIS5 MG PO; +LIPITOR10 MG PO
[2024-10-30] MEDS: CEFTRIAXONE 1 GM VIAL ONE (06:37)
[2024-10-30] MEDS: LACTATED RINGER'S 1,000 ML ONE (06:37)
[2024-10-30 06:45] LABS: BASOPHILS % 0.7 % (0.0-1.0); EOSINOPHILS # (AUTO) 0.1 (0.0-0.4); HEMOGLOBIN 12.3 g/dL (12.0-16.0); LYMPHOCYTES # (AUTO) 1.4 (1.0-3.2); LYMPHOCYTES % 31.7 % (18.0-39.1); MEAN CORPUSCULAR HEMOGLOBIN 30.5 pg (28-32); MEAN CORPUSCULAR HGB CONC 32.4 g/dL (31-35); MEAN CORPUSCULAR VOLUME 94.3 fL (81-99); MONOCYTES # (AUTO) 0.4 (0.2-0.8); MONOCYTES % 8.2 % (4.4-11.3); NEUTROPHILS # (AUTO) 2.6 (2.1-6.9); NEUTROPHILS % 57.2 % (38.7-80.0); PLATELET COUNT 198 x10e3/uL (140-360); RED BLOOD COUNT 4.03 x10e6/uL (3.6-5.1); RED CELL DISTRIBUTION WIDTH 14.2 % (11.7-14.4); WHITE BLOOD COUNT 4.51 x10e3/uL (4.8-10.8)
[2024-10-30 07:10] LABS: ANION GAP 17.9 mmol/L (8-16); CALCIUM 8.8 mg/dL (8.4-10.2); CREATININE, SERUM 0.85 mg/dL (0.57-1.11); POTASSIUM 3.9 mmol/L (3.5-5.1)
[2024-10-30 10:27] VITALS: RESP 14
[2024-10-30 11:00] VITALS: BP 126/59; PULSE 71; O2SAT 96
== END | disposition home or self-care (01) ==
LOC: OR 05:00
PROVIDERS: ATTEND Urology
DX: N20.0 Calculus of kidney (principal); Z46.6 Encounter for fitting and adjustment of urinary device; N81.10 Cystocele, unspecified; N81.6 Rectocele; N95.2 Postmenopausal atrophic vaginitis; N28.89 Other specified disorders of kidney and ureter; E66.01 Morbid (severe) obesity due to excess calories; R20.0 Anesthesia of skin; F17.200 Nicotine dependence, unspecified, uncomplicated; Z88.1 Allergy status to other antibiotic agents; Z79.02 Long term (current) use of antithrombotics/antiplatelets; Z79.899 Other long term (current) drug therapy; Z86.73 Personal history of transient ischemic attack (TIA), and cerebral infarction without residual deficits
CPT/HCPCS: 36415; 52351; 71046; 74018; 74420; 80048; 84550; 85025; 87086; 87186; C1769; J0696; J7121

== ENCOUNTER 2025-01-10 07:59 | Emergency (ER) | payer MEDICARE ==
[~2025-01-10] VITALS: Ht 147.3 cm; Wt 90.7 kg
[2025-01-10 08:09] VITALS: PULSE 83; RESP 20; TEMP 98.2; O2SAT 98
== END 2025-01-10 08:32 | disposition home or self-care (01) ==
LOC: ER 08:02
DX: I89.0 Lymphedema, not elsewhere classified (principal); R60.9 Edema, unspecified; M06.9 Rheumatoid arthritis, unspecified; Z85.72 Personal history of non-Hodgkin lymphomas; Z85.3 Personal history of malignant neoplasm of breast; Z87.442 Personal history of urinary calculi
CPT/HCPCS: 99283